=== PATIENT | male | born 2000 | race African-American/Black ===

== ENCOUNTER 2021-07-28 15:36 | Emergency (ER) | payer MEDICAID ==
[~2021-07-28] VITALS: Ht 170.2 cm; Wt 54.5 kg
[2021-07-28 15:39] VITALS: BP 109/77
== END 2021-07-28 16:01 | disposition home or self-care (01) ==
LOC: EMS 15:41
DX: Z20.822 Contact with and (suspected) exposure to COVID-19 (principal); F17.210 Nicotine dependence, cigarettes, uncomplicated; F12.90 Cannabis use, unspecified, uncomplicated
CPT/HCPCS: 99283; U0003